=== PATIENT | male | born 1960 | race Two or more races ===

== ENCOUNTER → 2018-10-22 | Outpatient (CLI) | payer OTHER | END | disposition home or self-care (01) | LOC: SPEC 11:20 | PROVIDERS: ATTEND Family Medicine | DX: R00.8 Other abnormalities of heart beat (principal) | CPT/HCPCS: 36415; 84484 ==

== ENCOUNTER 2019-05-13 14:37 | Emergency (ER) | payer MEDICARE, OTHER ==
[~2019-05-13] VITALS: Ht 182.9 cm; Wt 100.0 kg
[2019-05-13] MEDS ORDERED: IV NORMAL SALINE 1,000ML 1,000 ML IV ONE (15:00)
--- NOTE | 2019-05-13 15:03 | PHYS DOC ---
Adult General Chief Complaint Chief Complaint: ALTERED MENTAL STATUS HPI HPI Patient is a 58 year old male who presents with complaint of lethargy and generalized weakness. States that he started noticing symptoms yesterday. Notes that he woke with worsening lethargy and generalized weakness. Also notes that he has been slurring his words over the past 2-3 days. States he is currently staying at a homeless alf. EMS was called as the patient was not able to get up under his own power and was brought to the emergency department for further evaluation. Patient notes he has history of chronic pain in the low back but denies any new pain currently. No shortness of breath. Has not noticed any lateralizing weakness to either side. Review of Systems Review of Systems Constitutional: Fatigue, denies fever or chills[] Eyes: Denies change in visual acuity, redness, or eye pain [] HENT: Denies nasal congestion or sore throat [] Respiratory: Denies cough or shortness of breath [] Cardiovascular: Denies chest pain or edema[] GI: Denies abdominal pain, nausea, vomiting, bloody stools or diarrhea [] : Denies dysuria or hematuria [] Musculoskeletal: Chronic back pain[] Integument: Denies rash or skin lesions [] Neurologic: Generalized weakness, denies headache or loss of sensation[] All other systems were reviewed and found to be within normal limits, except as documented in this note. Current Medications Current Medications Current Medications Medications (Trade) Dose Ordered Sig/Misty Start Time Stop Time Status Last Admin Dose Admin Sodium Chloride 1,000 ml @ 1,000 mls/hr 1X ONCE 05/13/19 15:00 05/13/19 15:59 UNV Allergies Allergies Allergies Coded Allergies Type Severity Reaction Last Updated Verified No Known Drug Allergies 05/13/19 No Physical Exam Physical Exam Constitutional: Drowsy, afebrile, vital signs stable. [] HENT: Normocephalic, atraumatic, bilateral external ears normal, oropharynx dry, no oral exudates, nose normal. [] Eyes: PERRLA, EOMI, conjunctiva normal, no discharge. [] Neck: Normal range of motion, no tenderness, supple, no stridor. [] Cardiovascular:Heart rate regular rhythm, no murmur [] Lungs & Thorax: Bilateral breath sounds clear to auscultation [] Abdomen: Bowel sounds normal, soft, no tenderness, no masses, no pulsatile ma sses. [] Skin: Warm, dry, no erythema, no rash. [] Back: No tenderness, no CVA tenderness. [] Extremities: No tenderness, no cyanosis, no clubbing, ROM intact, no edema. [] Neurologic: Drowsy, oriented X 3, symmetric 3 out of 5 motor strength in upper and lower extremities, normal sensory function, no focal deficits noted. [] Current Patient Data Vital Signs Vital Signs Date Time Temp Pulse Resp B/P (MAP) Pulse Ox O2 Delivery O2 Flow Rate FiO2 05/13/19 15:02 97.7 71 16 99 Lab Results Laboratory Tests Test 05/13/19 15:02 05/13/19 16:00 White Blood Count 4.7 x10^3/uL Red Blood Count 4.72 x10^6/uL Hemoglobin 13.5 g/dL Hematocrit 40.0 % Mean Corpuscular Volume 85 fL Mean Corpuscular Hemoglobin 29 pg Mean Corpuscular Hemoglobin Concent 34 g/dL Red Cell Distribution Width 15.0 % Platelet Count 141 x10^3/uL Neutrophils (%) (Auto) 58 % Lymphocytes (%) (Auto) 27 % Monocytes (%) (Auto) 12 % Eosinophils (%) (Auto) 3 % Basophils (%) (Auto) 1 % Neutrophils # (Auto) 2.7 x10^3uL Lymphocytes # (Auto) 1.2 x10^3/uL Monocytes # (Auto) 0.5 x10^3/uL Eosinophils # (Auto) 0.1 x10^3/uL Basophils # (Auto) 0.1 x10^3/uL Sodium Level 143 mmol/L Potassium Level 4.1 mmol/L Chloride Level 108 mmol/L Carbon Dioxide Level 27 mmol/L Anion Gap 8 Blood Urea Nitrogen 17 mg/dL Creatinine 1.2 mg/dL Estimated GFR (Cockcroft-Gault) 62.2 BUN/Creatinine Ratio 14 Glucose Level 117 mg/dL Calcium Level 8.6 mg/dL Magnesium Level 1.8 mg/dL Total Bilirubin 0.3 mg/dL Aspartate Amino Transf (AST/SGOT) 19 U/L Alanine Aminotransferase (ALT/SGPT) 34 U/L Alkaline Phosphatase 64 U/L Total Protein 6.5 g/dL Albumin 3.0 g/dL Albumin/Globulin Ratio 0.9 Urine Collection Type Unknown Urine Color Yellow Urine Clarity Hazy Urine pH 6.0 Urine Specific [place] 1.020 Urine Protein Neg Urine Glucose (UA) Neg mg/dL Urine Ketones (Stick) Neg mg/dL Urine Blood Neg Urine Nitrite Neg Urine Bilirubin Neg Urine Urobilinogen Dipstick 0.2 mg/dL Urine Leukocyte Esterase Neg Urine RBC 0 /HPF Urine WBC 0 /HPF Urine Squamous Epithelial Cells Occ /LPF Urine Bacteria 0 /HPF Urine Opiates Screen Neg Urine Methadone Screen Neg Urine Barbiturates Neg Urine Phencyclidine Screen Neg Urine Amphetamine/Methamphetamine Neg Urine Benzodiazepines Screen Neg Urine Cocaine Screen Neg Urine Cannabinoids Screen Neg Urine Ethyl Alcohol Neg Current Medications Medications (Trade) Dose Ordered Sig/Misty Route PRN Reason Start Time Stop Time Status Last Admin Dose Admin Sodium Chloride 1,000 ml @ 1,000 mls/hr 1X ONCE IV 05/13/19 15:00 05/13/19 15:59 DC Iohexol (Omnipaque 300 Mg/ml) 75 ml 1X ONCE IV 05/13/19 16:15 05/13/19 16:16 DC EKG EKG Interpreted by me: Heart rate 64, sinus rhythm, normal intervals, normal axis, no acute ST/T-wave abnormalities present[] Radiology/Procedures Radiology/[place] [address] IMAGING REPORT Signed PATIENT: CHARLEY MAHAJAN ACCOUNT: [id number] : 1960 LOCATION: ER AGE: 58 SEX: M EXAM STATUS: REG ER ORD. PHYSICIAN: ALONDRA ALMENDAREZ MD REASON: altered mental status PROCEDURE: CT HEAD WO CONTRAST CT HEAD WO CONTRAST Clinical indications: Altered mental status. COMPARISON: None available. Technique: Noncontrast axial cross sectional scanning of the head was performed. PQRS compliance Statement One or more of the following individualized dose reduction techniques were utilized for this study: 1. Automated exposure control 2. Adjustment of the mA and/or kV according to patient size 3. Use of iterative reconstruction technique Findings: No acute intracranial hemorrhage or midline shift or mass-effect or hydrocephalus or extra-axial fluid collection is seen. No focal hypodense area or sulci effacement is seen to indicate an acute infarct or edema radiographically. No skull fracture or pneumocephalus is seen. There is complete opacification of the right maxillary sinus. The upper medial wall of the right maxillary sinus is eroded by the soft tissue mass of the right maxillary sinus. In addition, there is complete opacification of the right anterior ethmoid sinus. There is complete opacification of the right frontal sinus. IMPRESSION: No acute intracranial abnormality is seen. Sinusitis of the right frontal sinus and right ethmoid sinus and right maxillary sinus. The upper medial wall of the right maxillary sinus is eroded by the soft tissue mass of the right maxillary sinus. Therefore, this could represent a mucocele or atypical infection or neoplasm. ENT consultation is recommended. Electronically signed by: Mayank Mccullough MD (05/13/2019 3:28 PM) [place] [id number] DICTATED AND SIGNED BY: MAYANK MCCULLOUGH MD DATE: 05/13/19 152 CC: ALONDRA ALEMNDAREZ MD; PCP,NO ~ [place] [address] IMAGING REPORT Signed PATIENT: CHARLEY MAHAJAN ACCOUNT: [id number] : 1960 LOCATION: ER AGE: 58 SEX: M EXAM STATUS: REG ER ORD. PHYSICIAN: ALONDRA ALMENDAREZ MD REASON: right sinus disease PROCEDURE: CT MAXILLOFACIAL WO CONTRAST Examination: CT MAXILLOFACIAL WO CONTRAST History: Right sinus disease Comparison/Correlation: None Findings: Axial images of the maxillary facial structures were obtained. Sagittal and coronal reformatted images were provided. Globes and optic nerves are unremarkable. Opacification of the entire right frontal sinus, anterior right ethmoid air cells, and right axillary sinus is noted. Opacification of the right maxillary sinus ostium is completely. Bony resorption of or absence of the medial wall of the right maxillary sinus is noted. The left paranasal sinuses are unremarkable other than lack of development of the left frontal sinus. Left maxillary sinus ostium is patent. Sphenoid sinuses are clear. Postoperative cervical spine fusion is seen from C3 to C5. Full extent of plate and associated screws is not included on this exam. No fracture or bony destruction. Atlantoaxial joint degenerative remodeling is present. Impression: Complete opacification of the right frontal, anterior ethmoid, results reported or postoperative defect of the medial wall of the right maxillary sinus is evident. PQRS Compliance Statement: One or more of the following individualized dose reduction techniques were utilized for this examination: 1. Automated exposure control 2. Adjustment of the mA and/or kV according to patient size 3. Use of iterative reconstruction technique Electronically signed by: Kennedy Villanueva MD (05/13/2019 4:10 PM) [id number] DICTATED AND SIGNED BY: KENNEDY VILLANUEVA MD DATE: 05/13/19 1610 CC: ALONDRA ALMENDAREZ MD; PCP,NO ~ [place] [id number] IMAGING REPORT Signed PATIENT: CHARLEY MAHAJAN ACCOUNT: [id number] : 1960 LOCATION: ER AGE: 58 SEX: M EXAM STATUS: REG ER ORD. PHYSICIAN: ALONDRA ALMENDAREZ MD REASON: altered mental status PROCEDURE: PORTABLE CHEST 1V EXAM: AP View of the chest DATE: 05/13/2019 2:53 PM INDICATION: Altered mental status COMPARISON: No Prior FINDINGS: The heart is not enlarged. Mediastinal and hilar contours are normal. No focal parenchymal airspace opacity. No pleural effusion or pneumothorax. Cervical spine fusion hardware is partially profiled IMPRESSION: No evidence for acute cardiopulmonary process Electronically signed by: Michael Orozco MD (05/13/2019 3:28 PM) [facility] DICTATED AND SIGNED BY: MICHAEL OROZCO MD DATE: 05/13/19 1528 CC: ALONDRA ALMENDAREZ MD; PCP,NO ~ [] Course & Med Decision Making Course & Med Decision Making Pertinent Labs and Imaging studies reviewed. (See chart for details) Patient started on IV fluids in the emergency department. CT imaging shows evidence of maxillary sinus disease with erosion through the medial wall into the intranasal passage. Etiology of this is unclear however it does not appear to be the acute cause of the patient's lethargy. Given the patient's generalized weakness and lethargy, he will need to be admitted. In speaking with the patient, he would prefer to be admitted at the [facility] as he is a patient of their system. We contacted the [facility]. I spoke with Dr. Boo who agreed to accept patient for further treatment. Patient will be transferred by ground ambulance for further care. Patient in agreement with plan of care at time of disposition. Dragon Disclaimer Dragon Disclaimer This electronic medical record was generated, in whole or in part, using a voice recognition dictation system. Departure Departure: Impression: Primary Impression: Altered mental status Additional Impression: Disease of nasal sinus Disposition: XFER SHT-TRM HOSP Condition: STABLE Referrals: PCP,NO (PCP) Problem Qualifiers Primary Impression: Altered mental status Altered mental status type: unspecified Qualified Codes: R41.82 - Altered mental status, unspecified ALONDRA ALMENDAREZ MD May 13, 2019 15:03
[2019-05-13 15:24] LABS: BASO # 0.1 x10^3/uL (0.0-0.2); BASO % 1 % (0-3); EOS # 0.1 x10^3/uL (0.0-0.7); EOS % 3 % (0-3); HEMOGLOBIN 13.5 g/dL (13.0-17.5); LYMPH # 1.2 x10^3/uL (1.0-4.8); LYMPH % 27 % (24-48); MEAN CORPUSCULAR HEMOGLOBIN 29 pg (25-35); MEAN CORPUSCULAR HGB CONC 34 g/dL (31-37); MEAN CORPUSCULAR VOLUME 85 fL (79-100); MONO # 0.5 x10^3/uL (0.0-1.1); MONO % 12 % (0-9); NEUT # 2.7 x10^3uL (1.8-7.7); NEUT % 58 % (31-73); PLATELET COUNT 141 x10^3/uL (140-400); RED BLOOD COUNT 4.72 x10^6/uL (4.30-5.70); WHITE BLOOD COUNT 4.7 x10^3/uL (4.0-11.0)
[2019-05-13 15:26] LABS: ALBUMIN/GLOBULIN RATIO 0.9 (1.0-1.7); CALCIUM 8.6 mg/dL (8.5-10.1); CREATININE 1.2 mg/dL (0.7-1.3); GFR 62.2; MAGNESIUM 1.8 mg/dL (1.8-2.4); POTASSIUM 4.1 mmol/L (3.5-5.1); TOTAL BILIRUBIN 0.3 mg/dL (0.2-1.0); TOTAL PROTEIN 6.5 g/dL (6.4-8.2)
--- NOTE | 2019-05-13 15:31 | RAD ---
CT HEAD WO CONTRAST Clinical indications: Altered mental status. COMPARISON: None available. Technique: Noncontrast axial cross sectional scanning of the head was performed. PQRS compliance Statement One or more of the following individualized dose reduction techniques were utilized for this study: 1. Automated exposure control 2. Adjustment of the mA and/or kV according to patient size 3. Use of iterative reconstruction technique Findings: No acute intracranial hemorrhage or midline shift or mass-effect or hydrocephalus or extra-axial fluid collection is seen. No focal hypodense area or sulci effacement is seen to indicate an acute infarct or edema radiographically. No skull fracture or pneumocephalus is seen. There is complete opacification of the right maxillary sinus. The upper medial wall of the right maxillary sinus is eroded by the soft tissue mass of the right maxillary sinus. In addition, there is complete opacification of the right anterior ethmoid sinus. There is complete opacification of the right frontal sinus. IMPRESSION: No acute intracranial abnormality is seen. Sinusitis of the right frontal sinus and right ethmoid sinus and right maxillary sinus. The upper medial wall of the right maxillary sinus is eroded by the soft tissue mass of the right maxillary sinus. Therefore, this could represent a mucocele or atypical infection or neoplasm. ENT consultation is recommended. Electronically signed by: Kirk Mccullough MD (05/13/2019 3:28 PM) [facility]
--- NOTE | 2019-05-13 15:31 | RAD ---
EXAM: AP View of the chest DATE: 05/13/2019 2:53 PM INDICATION: Altered mental status COMPARISON: No Prior FINDINGS: The heart is not enlarged. Mediastinal and hilar contours are normal. No focal parenchymal airspace opacity. No pleural effusion or pneumothorax. Cervical spine fusion hardware is partially profiled IMPRESSION: No evidence for acute cardiopulmonary process Electronically signed by: Michael Kaur MD (05/13/2019 3:28 PM) [facility]
--- NOTE | 2019-05-13 16:13 | RAD ---
Examination: CT MAXILLOFACIAL WO CONTRAST History: Right sinus disease Comparison/Correlation: None Findings: Axial images of the maxillary facial structures were obtained. Sagittal and coronal reformatted images were provided. Globes and optic nerves are unremarkable. Opacification of the entire right frontal sinus, anterior right ethmoid air cells, and right axillary sinus is noted. Opacification of the right maxillary sinus ostium is completely. Bony resorption of or absence of the medial wall of the right maxillary sinus is noted. The left paranasal sinuses are unremarkable other than lack of development of the left frontal sinus. Left maxillary sinus ostium is patent. Sphenoid sinuses are clear. Postoperative cervical spine fusion is seen from C3 to C5. Full extent of plate and associated screws is not included on this exam. No fracture or bony destruction. Atlantoaxial joint degenerative remodeling is present. Impression: Complete opacification of the right frontal, anterior ethmoid, results reported or postoperative defect of the medial wall of the right maxillary sinus is evident. PQRS Compliance Statement: One or more of the following individualized dose reduction techniques were utilized for this examination: 1. Automated exposure control 2. Adjustment of the mA and/or kV according to patient size 3. Use of iterative reconstruction technique Electronically signed by: Kennedy Rivera MD (05/13/2019 4:10 PM) [id number]
[2019-05-13] MEDS ORDERED: IOHEXOL 300 MG/ML 75 ML VIAL. IV ONE (16:15)
[2019-05-13 16:23] LABS: BACTERIA,URINE 0 /HPF (0-FEW); BILIRUBIN,URINE NEG (NEG); CLARITY,URINE HAZY; COLOR,URINE YELLOW; GLUCOSE,URINE NEG (NEG); NITRITE,URINE NEG (NEG); RBC,URINE 0 /HPF (0-2); SQUAMOUS EPITHELIAL CELL,UR OCC /LPF; UROBILINOGEN,URINE 0.2 mg/dL (0.2 mg/dL); WBC,URINE 0 /HPF (0-4)
[2019-05-13 16:26] LABS: BARBITURATES NEG (NEG); BENZODIAZEPINES NEG (NEG); CANNABINOIDS NEG (NEG); COCAINE NEG (NEG); METHADONE NEG (NEG); OPIATES NEG (NEG); PHENCYCLIDINE NEG (NEG)
[2019-05-13 16:27] LABS: AMPHETAMINE/METHAMPHETAMINE NEG (NEG)
[2019-05-13 16:37] VITALS: BP 140/78
--- NOTE | 2019-05-13 16:39 | EKG ---
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
== END 2019-05-13 18:10 | disposition short-term general hospital (02) ==
LOC: ER 14:37
DX: R41.82 Altered mental status, unspecified (principal); J34.89 Other specified disorders of nose and nasal sinuses; G89.29 Other chronic pain; M54.5 Low back pain; Z59.0 Homelessness
CPT/HCPCS: 36415; 70450; 70486; 71045; 80053; 80307; 81001; 83735; 85025; 93005; 96360; 96361; 99285-25; J7030